=== PATIENT | male | born 1990 | race Caucasian/White ===

== ENCOUNTER 2022-01-23 11:44 | Emergency (ER) | payer SELFPAY ==
[2022-01-23] MEDS ORDERED: HYDROCODONE/APAP 5/325 MG TAB ONE (12:23)
--- NOTE | 2022-01-23 12:40 | RAD REPORT ---
EXAM DESCRIPTION: RAD - Ankle Right 3 View - 01/23/2022 12:32 pm CLINICAL HISTORY: PAIN Pain and swelling COMPARISON: No comparisons FINDINGS: Oblique fracture is seen involving the distal aspect of the fibula. Mild adjacent soft tis juve swelling. No dislocation evident.
[2022-01-23] MEDS ORDERED: ACETAMINOPHEN 500 MG TAB ONE (13:04)
--- NOTE | 2022-01-23 13:25 | EDPHYS ---
Physician Documentation [facility] Name: Magdy Agosto Age: 31 yrs Sex: Male : 1990 Arrival Date: 01/23/2022 Time: 11:50 Bed 11 Private MD: ED Physician Markos Colvin HPI: 01/23 12:57 This 31 yrs old Male presents to ER via Wheelchair with complaints of Ankle jl9 Injury. Patient reports wakeboarding then he heard a pop in his left ankle. . 12:57 The patient presents with pain. The complaints affect the left ankle. Onset: The jl9 symptoms/episode began/occurred just prior to arrival. Context: resulted from Wakeboarding. Severity of symptoms: in the emergency department the symptoms a " 3" out of "10". Historical: - Allergies: 12:05 Augmentin; bm7 12:05 PENICILLINS; bm7 - Home Meds: 12:05 None [Active]; bm7 - PMHx: 12:05 None; bm7 - PSHx: 12:05 Tonsillectomy; bm7 - Immunization history:: Adult Immunizations up to date, Client reports having NOT received the Covid vaccine. - Social history:: Smoking status: Patient denies any tobacco usage or history of. ROS: 12:58 Constitutional: Negative for fever, chills, and weight loss, Eyes: Negative for injury, jl9 pain, redness, and discharge, ENT: Negative for injury, pain, and discharge, Neck: Negative for injury, pain, and swelling, Cardiovascular: Negative for chest pain, palpitations, and edema, Respiratory: Negative for shortness of breath, cough, wheezing, and pleuritic chest pain, Abdomen/GI: Negative for abdominal pain, nausea, vomiting, diarrhea, and constipation, Back: Negative for injury and pain, : Negative for injury, bleeding, discharge, and swelling. 12:58 Skin: Negative for injury, rash, and discoloration, Neuro: Negative for headache, weakness, numbness, tingling, and seizure, Psych: Negative for depression, anxiety, suicide ideation, homicidal ideation, and hallucinations, Allergy/Immunology: Negative for hives, rash, and allergies, Endocrine: Negative for neck swelling, polydipsia, polyuria, polyphagia, and marked weight changes, Hematologic/Lymphatic: Negative for swollen nodes, abnormal bleeding, and unusual bruising. 12:58 MS/extremity: Positive for pain. Exam: 12:59 Constitutional: This is a well developed, well nourished patient who is awake, alert, jl9 and in no acute distress. Head/Face: Normocephalic, atraumatic. Eyes: Pupils equal round and reactive to light, extra-ocular motions intact. Lids and lashes normal. Conjunctiva and sclera are non-icteric and not injected. Cornea within normal limits. Periorbital areas with no swelling, redness, or edema. ENT: Mucous membranes moist. Neck: Trachea midline, no thyromegaly or masses palpated, and no cervical lymphadenopathy. Supple, full range of motion without nuchal rigidity, or vertebral point tenderness. No Meningismus. Chest/axilla: Normal chest wall appearance and motion. Nontender with no deformity. No lesions are appreciated. Cardiovascular: Regular rate and rhythm with a normal S1 and S2. No gallops, murmurs, or rubs. Normal PMI, no JVD. No pulse deficits. Respiratory: Lungs have equal breath sounds bilaterally, clear to auscultation and percussion. No rales, rhonchi or wheezes noted. No increased work of breathing, no retractions or nasal flaring. Abdomen/GI: Soft, non-tender, with normal bowel sounds. No distension or tympany. No guarding or rebound. No evidence of tenderness throughout. Back: No spinal tenderness. No costovertebral tenderness. Full range of motion. Skin: Warm, dry with normal turgor. Normal color with no rashes, no lesions, and no evidence of cellulitis. 12:59 Neuro: Awake and alert, GCS 15, oriented to person, place, time, and situation. Cranial nerves II-XII grossly intact. Motor strength 5/5 in all extremities. Sensory grossly intact. Cerebellar exam normal. Normal gait. Psych: Awake, alert, with orientation to person, place and time. Behavior, mood, and affect are within normal limits. 12:59 Musculoskeletal/extremity: Extremities: grossly normal except: noted in the left ankle: pain, ROM: limited active range of motion due to pain, Circulation is intact in all extremities. Sensation intact. Vital Signs: 12:08 BP 130 / 87; Pulse 86; Resp 16; Temp 98.7(TE); Pulse Ox 99% on R/A; Weight 90.72 kg bm7 (R); Height 5 ft. 9 in. (175.26 cm); Pain 8/; 12:08 Body Mass Index 29.53 (90.72 kg, 175.26 cm) bm7 Procedures: 12:59 Splinting: Splint applied to left leg using Orthoglass splint, applied by tech. jl9 Examined by me, post splint application: neurovascular intact, 2+ distal pulses palpable, brisk capillary refill noted, Patient tolerated well. MDM: 12:08 Patient medically screened. jl9 13:00 Data reviewed: vital signs, nurses notes, radiologic studies. Counseling: I had a jl9 detailed discussion with the patient and/or guardian regarding: the historical points, exam findings, and any diagnostic results supporting the discharge/admit diagnosis, radiology results, the need for outpatient follow up, to return to the emergency department if symptoms worsen or persist or if there are any questions or concerns that arise at home. 01/23 12:08 Order name: XRAY Ankle RIGHT 3 view; Complete Time: 12:46 9 01/23 12:49 Order name: Posterior Leg Splint; Complete Time: 13:32 jl9 01/23 13:02 Order name: Crutches; Complete Time: 13:32 jl9 Administered Medications: 12:56 CANCELLED (Patient Refused): HYDROcodone-acetaminophen 5 mg-325 mg 1 tabs PO once bm7 12:56 Drug: Acetaminophen 1000 mg Route: PO; bm7 13:35 Follow up: Response: Pain is decreased bm7 Disposition: 16:33 Co-signature as Attending Physician, Markos Colvin MD. rn Disposition Summary: 01/23/22 13:24 Discharge Ordered Location: Home jl9 Condition: Stable jl9 Diagnosis - Nondisplaced fracture of lateral malleolus of left fibula jl9 Followup: jl9 - With: Private Physician - When: 1 - 2 days - Reason: Recheck today's complaints, Continuance of care, Re-evaluation by your physician Followup: jl9 - With: Xu Kennedy MD - When: 1 - 2 days - Reason: Recheck today's complaints, Continuance of care, Re-evaluation by your physician Discharge Instructions: - Discharge Summary Sheet jl9 - Fibular Fracture, Pediatric jl9 Forms: - Medication Reconciliation Form jl9 - Thank You Letter jl9 - Antibiotic Education jl9 - Prescription Opioid Use jl9 Signatures: Dispatcher [employer] EDaMrkos Anderson MD MD rn McCarthy, Brittany, RN RN bm7 Linares, John jl9 Corrections: (The following items were deleted from the chart) 12:56 12:08 HYDROcodone-acetaminophen 5 mg-325 mg 1 tabs PO once ordered. jl9 bm7 12:56 12:11 HYDROcodone-acetaminophen 5 mg-325 mg 1 tabs PO once given. bm7 bm7 12:56 12:56 HYDROcodone-acetaminophen 5 mg-325 mg 1 tabs PO once ordered. bm7 bm7
--- NOTE | 2022-01-23 13:25 | ER ---
Nurse's Notes [facility] Name: Magdy Agosto Age: 31 yrs Sex: Male : 1990 Arrival Date: 01/23/2022 Time: 11:50 Bed 11 Private MD: Diagnosis: Nondisplaced fracture of lateral malleolus of left fibula Presentation: 01/23 12:03 Chief complaint: Patient states: I think I sprained or broke my right ankle. I felt it bm7 pop when I was water boarding. Coronavirus screen: At this time, the client does not indicate any symptoms associated with coronavirus-19. Ebola Screen: No symptoms or risks identified at this time. Initial Sepsis Screen: Does the patient meet any 2 criteria? No. Patient's initial sepsis screen is negative. Does the patient have a suspected source of infection? No. Patient's initial sepsis screen is negative. Risk Assessment: Do you want to hurt yourself or someone else? Patient reports no desire to harm self or others. Onset of symptoms was January 23, 2022. 12:03 Method Of Arrival: Wheelchair bm7 12:03 Acuity: RILEY 4 bm7 Triage Assessment: 12:05 General: Appears in no apparent distress. uncomfortable, Behavior is calm, cooperative, bm7 appropriate for age. Pain: Complains of pain in right lateral malleolus and right medial malleolus. EENT: No deficits noted. No signs and/or symptoms were reported regarding the EENT system. Neuro: No deficits noted. Cardiovascular: No deficits noted. Respiratory: No deficits noted. GI: No deficits noted. No signs and/or symptoms were reported involving the gastrointestinal system. : No deficits noted. No signs and/or symptoms were reported regarding the genitourinary system. Derm: No deficits noted. No signs and/or symptoms reported regarding the dermatologic system. Musculoskeletal: Reports pain in right lateral malleolus and right medial malleolus. Historical: - Allergies: 12:05 Augmentin; bm7 12:05 PENICILLINS; bm7 - Home Meds: 12:05 None [Active]; bm7 - PMHx: 12:05 None; bm7 - PSHx: 12:05 Tonsillectomy; bm7 - Immunization history:: Adult Immunizations up to date, Client reports having NOT received the Covid vaccine. - Social history:: Smoking status: Patient denies any tobacco usage or history of. Vital Signs: 12:08 BP 130 / 87; Pulse 86; Resp 16; Temp 98.7(TE); Pulse Ox 99% on R/A; Weight 90.72 kg bm7 (R); Height 5 ft. 9 in. (175.26 cm); Pain 8/10; 12:08 Body Mass Index 29.53 (90.72 kg, 175.26 cm) bm7 ED Course: 11:50 Patient arrived in ED. rg4 11:56 Peter Mathew is PHCP. jl9 11:56 Markos Colvin MD is Attending Physician. jl9 12:05 Triage completed. bm7 12:05 Arm band placed on right wrist. bm7 12:32 XRAY Ankle RIGHT 3 view In Process Unspecified. EDMS 12:43 Angeles Dillon, RN is Primary Nurse. iw 13:21 Xu Kennedy MD is Referral Physician. jl9 13:31 Orthoglass splint: Posterior short lleg splint applied on right leg. zm Administered Medications: 12:56 CANCELLED (Patient Refused): HYDROcodone-acetaminophen 5 mg-325 mg 1 tabs PO once bm7 12:56 Drug: Acetaminophen 1000 mg Route: PO; bm7 13:35 Follow up: Response: Pain is decreased bm7 Outcome: 13:24 Discharge ordered by . jl9 13:35 Discharged to home with crutches, with friend. bm7 13:35 Condition: improved 13:35 Discharge instructions given to patient, family, Instructed on discharge instructions, follow up and referral plans. Demonstrated understanding of instructions, follow-up care. 13:35 Patient left the ED. bm7 Signatures: Dispatcher [employer] EDMS Angeles Dillon, RN Madison Lentz rg4 Claudia Fontana RN RN bm7 Kizzy Coy John jl9 Corrections: (The following items were deleted from the chart) 12:56 12:11 HYDROcodone-acetaminophen 5 mg-325 mg 1 tabs PO bm7 bm7
[2022-01-25 00:36] VITALS: BP 130/87; TEMP 98.7; O2SAT 99
== END 2022-01-23 13:35 | disposition home or self-care (01) ==
LOC: ER 11:44
PROC: 2W3RX1Z Immobilization of Left Lower Leg using Splint (ICD-10-PCS; principal; 2022-01-23)
DX: S82.65XA Nondisplaced fracture of lateral malleolus of left fibula, initial encounter for closed fracture (principal)
CPT/HCPCS: 99283